=== PATIENT | male | born 1945 | race Caucasian/White ===

== ENCOUNTER 2022-03-16 23:38 | Inpatient (IN) ==
[2022-03-17 01:32] LABS: PCO2 Arterial 38 mmHg (35-45); PO2 Arterial 76 mmHg (80-100)
[2022-03-17 01:41] LABS: ABS Basophils 0.1 10^3/ul (0-0.2); ABS Eosinophils 0.1 10^3/ul (0-0.6); ABS Lymphocytes 0.8 10^3/ul (1.0-4.8); ABS Neutrophils 9.8 10^3/ul (1.5-7.7); Eosinophil % 1.2 %; Hematocrit 32 % (42-52); Hemoglobin 10.6 g/dL (14.0-18.0); Lymphocyte % 6.7 %; Mean Corpuscular HGB Conc 33 g/dL (31-36); Mean Corpuscular Hemoglobin 32 pg (27-31); Mean Corpuscular Volume 98 fL (80-94); Mean Platelet Volume 8.1 fL (7.4-10.4); Platelet Count 189 10^3/uL (150-450); Red Blood Count 3.27 10^6 /uL (4.18-5.48); Red Cell Distribution Width 15 % (10-15); White Blood Count 11.8 10^3/uL (3.5-10.8)
[2022-03-17 02:12] LABS: Albumin 4.4 g/dL (3.2-5.2); Albumin/Globulin Ratio 1.8 (1-3); Calcium 9.3 mg/dL (8.6-10.3); Globulin 2.4 g/dL (2-4); Total Bilirubin 0.8 mg/dL (0.2-1.0); Total Protein 6.8 g/dL (6.4-8.9)
[2022-03-17 02:21] LABS: Potassium 6.1 mmol/L (3.5-5.0)
[2022-03-17 02:48] LABS: High Sensitivity Troponin 1 Hr 40 pg/mL (<20)
[2022-03-17] MEDS ORDERED: Albuterol HFA INHALER 8 gm MDI INH PRN (06:27)
[2022-03-17] MEDS ORDERED: cefTRIAXone 1 gm/50 mL D5W 1 GM/50 ML BAG IV SCH (06:30)
[2022-03-17 07:43] LABS: Magnesium 2.5 mg/dL (1.9-2.7); Phosphorus 6.3 mg/dL (2.5-5.0)
[2022-03-17] MEDS ORDERED: Azithromycin 500 mg/250 ml NS 500 MG/250 ML BAG IVPB SCH (08:00)
[2022-03-17] MEDS: Heparin 1,000 UNIT/ML 10 ml (10,000 UNITS) CATHLAB/DIALYSIS DIALYSIS PRN ×4 (08:50→11:29)
[2022-03-17 12:09] LABS: C Reactive Protein 5.24 mg/L (<8.01)
[2022-03-17] MEDS ORDERED: Perflutren Lipid Microsphere 3 ML VIAL ONE (14:40)
[2022-03-17] MEDS: Heparin 5000 UNITS/ML 1 mL VIAL SUBCUT SCH ×2 (16:03→21:54)
[2022-03-17] MEDS ORDERED: Dextrose 50% Syringe 50 ml 25 GM/50 ML SYRINGE IV PUSH PRN ×2 (18:37→21:54)
[2022-03-17 19:59] LABS: Hepatitis B Surface Antigen Nonreactive (Nonreactive)
[2022-03-17 20:16] LABS: Hepatitis B Surface Ab Not Immune (Immune)
[2022-03-17 22:36] LABS: Calcium 9.1 mg/dL (8.6-10.3); eGFR CKD-EPI 6.7 (>60)
[2022-03-17 22:45] LABS: Potassium 5.7 mmol/L (3.5-5.0)
[2022-03-18 04:38] LABS: ABS Basophils 0.1 10^3/ul (0-0.2); ABS Lymphocytes 0.6 10^3/ul (1.0-4.8); ABS Monocytes 0.7 10^3/ul (0-0.8); ABS Neutrophils 8.1 10^3/ul (1.5-7.7); Eosinophil % 0.1 %; Hematocrit 31 % (42-52); Hemoglobin 10.4 g/dL (14.0-18.0); Lymphocyte % 6.2 %; Mean Corpuscular HGB Conc 34 g/dL (31-36); Mean Corpuscular Hemoglobin 33 pg (27-31); Mean Corpuscular Volume 97 fL (80-94); Mean Platelet Volume 8.5 fL (7.4-10.4); Platelet Count 192 10^3/uL (150-450); Red Blood Count 3.18 10^6 /uL (4.18-5.48); Red Cell Distribution Width 15 % (10-15); White Blood Count 9.5 10^3/uL (3.5-10.8)
[2022-03-18 05:26] LABS: Calcium 9.3 mg/dL (8.6-10.3); Magnesium 2.3 mg/dL (1.9-2.7); Phosphorus 4.6 mg/dL (2.5-5.0); eGFR CKD-EPI 6.3 (>60)
[2022-03-18 05:27] LABS: Potassium 5.4 mmol/L (3.5-5.0)
[2022-03-18] MEDS: Heparin 5000 UNITS/ML 1 mL VIAL SUBCUT SCH ×2 (06:22→15:18)
[2022-03-18] MEDS: Heparin 1,000 UNIT/ML 10 ml (10,000 UNITS) CATHLAB/DIALYSIS DIALYSIS PRN ×4 (06:46→10:01)
[2022-03-18] MEDS: Cholecalciferol (VIT D3) 1,000 unit TAB PO SCH (11:50)
[2022-03-18] MEDS ORDERED: Polyethylene Glycol 3350 17 GM PACKET PO PRN (15:46)
[2022-03-19] MEDS: Heparin 5000 UNITS/ML 1 mL VIAL SUBCUT SCH ×4 (00:39→18:37)
[2022-03-19 05:53] LABS: ABS Basophils 0.1 10^3/ul (0-0.2); ABS Eosinophils 0.1 10^3/ul (0-0.6); ABS Lymphocytes 1.2 10^3/ul (1.0-4.8); ABS Neutrophils 7.2 10^3/ul (1.5-7.7); Eosinophil % 1.3 %; Hematocrit 34 % (42-52); Hemoglobin 11.6 g/dL (14.0-18.0); Lymphocyte % 12.3 %; Mean Corpuscular HGB Conc 34 g/dL (31-36); Mean Corpuscular Hemoglobin 33 pg (27-31); Mean Corpuscular Volume 97 fL (80-94); Mean Platelet Volume 8.8 fL (7.4-10.4); Platelet Count 202 10^3/uL (150-450); Red Blood Count 3.53 10^6 /uL (4.18-5.48); Red Cell Distribution Width 14 % (10-15); White Blood Count 9.6 10^3/uL (3.5-10.8)
[2022-03-19 06:11] LABS: Calcium 9.1 mg/dL (8.6-10.3); Magnesium 2.3 mg/dL (1.9-2.7); Phosphorus 5.4 mg/dL (2.5-5.0); eGFR CKD-EPI 7.9 (>60)
[2022-03-19 06:13] LABS: Potassium 5.6 mmol/L (3.5-5.0)
[2022-03-19] MEDS: Cholecalciferol (VIT D3) 1,000 unit TAB PO SCH (08:30)
[2022-03-19] MEDS: Heparin 1,000 UNIT/ML 10 ml (10,000 UNITS) CATHLAB/DIALYSIS DIALYSIS PRN ×4 (13:15→16:15)
[2022-03-20] MEDS: Heparin 5000 UNITS/ML 1 mL VIAL SUBCUT SCH ×2 (00:15→08:21)
[2022-03-20 04:57] VITALS: BP 127/65
[2022-03-20 05:42] LABS: ABS Basophils 0.1 10^3/ul (0-0.2); ABS Eosinophils 0.1 10^3/ul (0-0.6); ABS Monocytes 0.9 10^3/ul (0-0.8); ABS Neutrophils 6.4 10^3/ul (1.5-7.7); Eosinophil % 0.8 %; Hematocrit 37 % (42-52); Hemoglobin 12.5 g/dL (14.0-18.0); Mean Corpuscular HGB Conc 34 g/dL (31-36); Mean Corpuscular Hemoglobin 33 pg (27-31); Mean Corpuscular Volume 97 fL (80-94); Mean Platelet Volume 8.4 fL (7.4-10.4); Platelet Count 234 10^3/uL (150-450); Red Blood Count 3.86 10^6 /uL (4.18-5.48); Red Cell Distribution Width 15 % (10-15); White Blood Count 8.4 10^3/uL (3.5-10.8)
[2022-03-20 06:26] LABS: Calcium 9.3 mg/dL (8.6-10.3); Magnesium 2.1 mg/dL (1.9-2.7); Phosphorus 5.2 mg/dL (2.5-5.0); eGFR CKD-EPI 9.3 (>60)
[2022-03-20 06:28] LABS: Potassium 5.4 mmol/L (3.5-5.0)
[2022-03-20] MEDS: Cholecalciferol (VIT D3) 1,000 unit TAB PO SCH (08:21)
== END 2022-03-20 13:30 | disposition home or self-care (01) | DRG 291 ==
LOC: ED 23:38 → SUATTDRO 03-17 06:20 → EDHOLD 03-17 06:20 → ICU 03-17 08:20 → MEDTELE 03-18 23:12
PROVIDERS: ADMIT Surgery Surgical Critical Care; ATTEND Internal Medicine

== ENCOUNTER 2023-05-18 14:12 | Inpatient (IN) ==
[2023-05-18 14:44] LABS: ABS Basophils 0.1 10^3/uL (0.0-0.1); ABS Eosinophils 0.1 10^3/uL (0.0-0.5); ABS Lymphocytes 1.3 10^3/uL (1.0-4.8); ABS Monocytes 1.2 10^3/uL (0.0-1.1); ABS Neutrophils 12.7 10^3/uL (1.5-7.6); Eosinophil % 0.7 %; Hematocrit 33.6 % (38-53); Hemoglobin 11.4 g/dL (13.2-16.3); Lymphocyte % 8.2 %; Mean Platelet Volume 8.4 fL (7.5-11.2); Platelet Count 151 10^3/uL (150-450); Red Blood Count 3.46 10^6/uL (4.06-5.63); Red Cell Distribution Width 13.6 % (12-17); White Blood Count 15.4 10^3/uL (3.6-10.2)
[2023-05-18 14:54] LABS: INR 1.25 (0.83-1.13)
[2023-05-18 15:08] LABS: Albumin 4.3 g/dL (3.2-5.2); Calcium 9.4 mg/dL (8.6-10.3); Potassium 4.4 mmol/L (3.5-5.0)
[2023-05-18 15:14] LABS: Albumin/Globulin Ratio 1.7 (1-3); C Reactive Protein 66.51 mg/L (<8.01); Creatinine, Serum 5.74 mg/dL (0.67-1.17); Globulin 2.5 g/dL (2-4); Total Protein 6.8 g/dL (6.4-8.9); eGFR CKD-EPI 9.5 (>60)
[2023-05-18] MEDS ORDERED: Piperacillin/Tazobac 3.375 BAG 3.375 GM/100 ML BAG IV ONE (16:07)
[2023-05-18 16:35] LABS: High Sensitivity Troponin 1 Hr 61 pg/mL (<20)
[2023-05-18] MEDS ORDERED: Vancomycin 1,250 MG in NS 0.9% 250 ml 250 ML IVPB ONE (17:00)
[2023-05-18] MEDS: Hydrocortisone INJ 100 MG/2ML 2 ML VIAL IV SCH (18:55)
[2023-05-18] MEDS ORDERED: Zosyn per Pharmacy NOTE FOLLOW UP SCH (19:00)
[2023-05-18 19:07] LABS: ABS Basophils 0.1 10^3/uL (0.0-0.1); ABS Eosinophils 0.1 10^3/uL (0.0-0.5); ABS Lymphocytes 1.5 10^3/uL (1.0-4.8); ABS Monocytes 1.1 10^3/uL (0.0-1.1); ABS Neutrophils 12.4 10^3/uL (1.5-7.6); Eosinophil % 0.7 %; Hematocrit 33.9 % (38-53); Hemoglobin 11.5 g/dL (13.2-16.3); Lymphocyte % 9.6 %; Mean Corpuscular Hemoglobin 32.9 pg (27-33); Mean Corpuscular Hgb Conc 33.9 g/dL (31-36); Mean Corpuscular Volume 97.1 fL (80-97); Platelet Count 160 10^3/uL (150-450); Red Blood Count 3.49 10^6/uL (4.06-5.63); Red Cell Distribution Width 13.9 % (12-17); White Blood Count 15.1 10^3/uL (3.6-10.2)
[2023-05-18 19:14] LABS: Activated Partial Thrombo Time 33.8 seconds (26.0-38.0); INR 1.22 (0.83-1.13)
[2023-05-18 19:31] LABS: Creatinine, Serum 6.66 mg/dL (0.67-1.17)
[2023-05-18] MEDS ORDERED: Sacubitril/Valsartan 97/103(NF) PO SCH (21:00)
[2023-05-18] MEDS ORDERED: Lactated Ringers 1000 ml BAG 500 ML IV ONE (22:58)
[2023-05-18] MEDS ORDERED: NS 0.9% 1000 ml BAG 1,000 ML IV ONE (22:59)
[2023-05-18] MEDS: Heparin 5000 UNITS/ML 1 mL VIAL SUBCUT SCH (23:04)
[2023-05-18] MEDS: CMCS: Budesonide 3 mg CAP (NF) PO SCH (23:04)
[2023-05-18 23:25] LABS: ABS Basophils 0.1 10^3/uL (0.0-0.1); ABS Lymphocytes 0.4 10^3/uL (1.0-4.8); ABS Monocytes 0.7 10^3/uL (0.0-1.1); ABS Neutrophils 15.3 10^3/uL (1.5-7.6); Eosinophil % 0.1 %; Hematocrit 31.7 % (38-53); Hemoglobin 10.7 g/dL (13.2-16.3); Lymphocyte % 2.7 %; Mean Corpuscular Hemoglobin 33.2 pg (27-33); Mean Corpuscular Hgb Conc 33.8 g/dL (31-36); Mean Corpuscular Volume 98.2 fL (80-97); Mean Platelet Volume 8.3 fL (7.5-11.2); Platelet Count 154 10^3/uL (150-450); Red Blood Count 3.22 10^6/uL (4.06-5.63); Red Cell Distribution Width 13.8 % (12-17); White Blood Count 16.5 10^3/uL (3.6-10.2)
[2023-05-18 23:43] LABS: Albumin 3.8 g/dL (3.2-5.2); Calcium 9.3 mg/dL (8.6-10.3); Potassium 4.9 mmol/L (3.5-5.0); Total Bilirubin 1.1 mg/dL (0.2-1.0)
[2023-05-18 23:49] LABS: Albumin/Globulin Ratio 1.5 (1-3); Creatinine, Serum 6.9 mg/dL (0.67-1.17); Globulin 2.5 g/dL (2-4); Total Protein 6.3 g/dL (6.4-8.9); eGFR CKD-EPI 7.6 (>60)
[2023-05-19] MEDS ORDERED: Piperacillin/Tazobac 3.375 BAG 3.375 GM/100 ML BAG IV ONE ×2 (01:43→06:00)
[2023-05-19] MEDS: Hydrocortisone INJ 100 MG/2ML 2 ML VIAL IV SCH ×2 (04:45→19:20)
[2023-05-19] MEDS ORDERED: Vancomycin per Pharmacy 1 EA NOTE FOLLOW UP SCH (06:00)
[2023-05-19] MEDS ORDERED: Vancomycin Random Level NOTE FOLLOW UP ONE (06:00)
[2023-05-19 06:43] LABS: ABS Lymphocytes 0.7 10^3/uL (1.0-4.8); ABS Monocytes 0.9 10^3/uL (0.0-1.1); ABS Neutrophils 13.4 10^3/uL (1.5-7.6); Hemoglobin 10.2 g/dL (13.2-16.3); Lymphocyte % 4.6 %; Mean Corpuscular Hemoglobin 33.4 pg (27-33); Mean Corpuscular Volume 98.2 fL (80-97); Mean Platelet Volume 8.7 fL (7.5-11.2); Platelet Count 141 10^3/uL (150-450); Red Blood Count 3.05 10^6/uL (4.06-5.63); Red Cell Distribution Width 14.1 % (12-17)
[2023-05-19 06:56] LABS: Calcium 8.8 mg/dL (8.6-10.3); Creatinine, Serum 7.52 mg/dL (0.67-1.17); Potassium 4.7 mmol/L (3.5-5.0); Vancomycin Random 11.2 mcg/mL; eGFR CKD-EPI 6.9 (>60)
[2023-05-19] MEDS: Heparin 5000 UNITS/ML 1 mL VIAL SUBCUT SCH ×4 (07:53→21:11)
[2023-05-19] MEDS: CMCS: Budesonide 3 mg CAP (NF) PO SCH ×2 (09:47→21:09)
[2023-05-19] MEDS: Cholecalciferol (VIT D3) 1,000 unit TAB PO SCH (09:48)
[2023-05-19] MEDS ORDERED: Vancomycin - DIALYSIS DOSING 1 EA NOTE FOLLOW UP SCH (10:00)
[2023-05-19] MEDS: ZOSYN 3.375 GM Q12H per EXTENDED INFUSION IV SCH ×2 (10:12→23:40)
[2023-05-19 14:20] LABS: Hepatitis B Surface Antigen Nonreactive (Nonreactive)
[2023-05-19 14:38] LABS: Hepatitis B Surface Ab Not Immune (Immune)
[2023-05-19] MEDS ORDERED: Albumin Human 25% 25 GM/100 ML BTL IV PRN (15:39)
[2023-05-19] MEDS ORDERED: NS 0.9% 1000 ml BAG 200 ML IV PRN (15:39)
[2023-05-19] MEDS ORDERED: NS 0.9% 1000 ml BAG 100 ML IV PRN (15:39)
[2023-05-19] MEDS ORDERED: Vancomycin 750 MG in NS 0.9% 250 ML IVPB ONE (18:00)
[2023-05-20] MEDS: Heparin 5000 UNITS/ML 1 mL VIAL SUBCUT SCH ×2 (05:46→14:34)
[2023-05-20] MEDS ORDERED: Vancomycin Random Level NOTE FOLLOW UP ONE (06:00)
[2023-05-20 06:38] LABS: Calcium 8.5 mg/dL (8.6-10.3); Creatinine, Serum 8.85 mg/dL (0.67-1.17); Magnesium 1.9 mg/dL (1.9-2.7); eGFR CKD-EPI 5.7 (>60)
[2023-05-20 06:42] LABS: Vancomycin Random 14.5 mcg/mL
[2023-05-20 07:20] LABS: Hepatitis B Surface Antigen Nonreactive (Nonreactive)
[2023-05-20] MEDS: Heparin 1,000 UNIT/ML 10 ml (10,000 UNITS) CATHLAB/DIALYSIS DIALYSIS PRN ×4 (08:56→11:56)
[2023-05-20] MEDS: ZOSYN 3.375 GM Q12H per EXTENDED INFUSION IV SCH (13:47)
[2023-05-20] MEDS: Cholecalciferol (VIT D3) 1,000 unit TAB PO SCH (14:35)
[2023-05-20] MEDS: CMCS: Budesonide 3 mg CAP (NF) PO SCH (14:36)
[2023-05-20 16:08] VITALS: BP 130/69
[2023-05-20] MEDS ORDERED: Vancomycin 750 MG in NS 0.9% 250 ML IVPB ONE (18:00)
[2023-05-22] MEDS ORDERED: Vancomycin Trough Check NOTE FOLLOW UP ONE (09:00)
== END 2023-05-20 17:15 | disposition home or self-care (01) | DRG 91 ==
LOC: ED 14:12 → EDHOLD 14:12 → MEDTELE 17:20
PROVIDERS: ADMIT Internal Medicine; ATTEND Internal Medicine

== ENCOUNTER 2023-08-02 14:51 | Inpatient (IN) ==
[2023-08-02 21:04] LABS: ABS Eosinophils 0.6 10^3/uL (0.0-0.5); ABS Lymphocytes 1.2 10^3/uL (1.0-4.8); ABS Monocytes 0.7 10^3/uL (0.0-1.1); Eosinophil % 8.6 %; Hematocrit 33.3 % (38-53); Hemoglobin 11.4 g/dL (13.2-16.3); Lymphocyte % 18.4 %; Mean Corpuscular Hemoglobin 33.3 pg (27-33); Mean Corpuscular Hgb Conc 34.4 g/dL (31-36); Mean Corpuscular Volume 96.9 fL (80-97); Mean Platelet Volume 8.1 fL (7.5-11.2); Platelet Count 163 10^3/uL (150-450); Red Blood Count 3.44 10^6/uL (4.06-5.63); Red Cell Distribution Width 14.3 % (12-17); White Blood Count 6.5 10^3/uL (3.6-10.2)
[2023-08-02 21:21] LABS: Albumin 3.7 g/dL (3.2-5.2); Albumin/Globulin Ratio 1.6 (1-3); Calcium 8.9 mg/dL (8.6-10.3); Creatinine, Serum 9.33 mg/dL (0.67-1.17); Globulin 2.3 g/dL (2-4); Potassium 5.6 mmol/L (3.5-5.0); Total Bilirubin 0.4 mg/dL (0.2-1.0); eGFR CKD-EPI 5.3 (>60)
[2023-08-02 21:28] LABS: INR 1.12 (0.83-1.13)
[2023-08-02] MEDS ORDERED: SODIUM ZIRCONIUM CYCLOSILICATE 10 GM PACKET PO ONE (22:25)
[2023-08-03] MEDS ORDERED: NS 0.9% 1000 ml BAG 100 ML IV PRN (07:52)
[2023-08-03] MEDS ORDERED: NS 0.9% 1000 ml BAG 200 ML IV PRN (07:52)
[2023-08-03] MEDS: Vitamin THERAPEUTIC TAB PO SCH (08:52)
[2023-08-03] MEDS: Cholecalciferol (VIT D3) 1,000 unit TAB PO SCH (08:52)
[2023-08-03 09:31] LABS: ABS Basophils 0.1 10^3/uL (0.0-0.1); ABS Eosinophils 0.6 10^3/uL (0.0-0.5); ABS Lymphocytes 1.5 10^3/uL (1.0-4.8); ABS Monocytes 0.7 10^3/uL (0.0-1.1); ABS Neutrophils 4.3 10^3/uL (1.5-7.6); Eosinophil % 7.9 %; Hematocrit 37.2 % (38-53); Hemoglobin 12.6 g/dL (13.2-16.3); Lymphocyte % 21.4 %; Mean Corpuscular Hemoglobin 33.2 pg (27-33); Mean Corpuscular Volume 97.5 fL (80-97); Mean Platelet Volume 8.1 fL (7.5-11.2); Platelet Count 178 10^3/uL (150-450); Red Blood Count 3.81 10^6/uL (4.06-5.63); Red Cell Distribution Width 14.2 % (12-17); White Blood Count 7.2 10^3/uL (3.6-10.2)
[2023-08-03 09:48] LABS: Calcium 9.4 mg/dL (8.6-10.3); Creatinine, Serum 9.95 mg/dL (0.67-1.17); Potassium 5.6 mmol/L (3.5-5.0); eGFR CKD-EPI 4.9 (>60)
[2023-08-03 10:43] LABS: Hepatitis B Surface Ab Not Immune (Immune)
[2023-08-03] MEDS: Heparin 1,000 UNIT/ML 10 ml (10,000 UNITS) CATHLAB/DIALYSIS DIALYSIS PRN ×3 (13:00→15:00)
[2023-08-03 13:48] LABS: Hepatitis B Surface Antigen Nonreactive (Nonreactive)
[2023-08-03 18:57] LABS: ABS Eosinophils 0.5 10^3/uL (0.0-0.5); ABS Lymphocytes 1.1 10^3/uL (1.0-4.8); ABS Monocytes 0.7 10^3/uL (0.0-1.1); ABS Neutrophils 4.5 10^3/uL (1.5-7.6); Eosinophil % 6.9 %; Hematocrit 37.3 % (38-53); Hemoglobin 12.8 g/dL (13.2-16.3); Lymphocyte % 16.5 %; Mean Corpuscular Hemoglobin 33.1 pg (27-33); Mean Corpuscular Hgb Conc 34.3 g/dL (31-36); Mean Corpuscular Volume 96.7 fL (80-97); Platelet Count 177 10^3/uL (150-450); Red Blood Count 3.86 10^6/uL (4.06-5.63); Red Cell Distribution Width 14.2 % (12-17); White Blood Count 6.8 10^3/uL (3.6-10.2)
[2023-08-03 19:14] LABS: Creatinine, Serum 5.78 mg/dL (0.67-1.17); eGFR CKD-EPI 9.4 (>60)
[2023-08-03 19:16] LABS: Activated Partial Thrombo Time 34.9 seconds (26.0-38.0); INR 1.11 (0.83-1.13)
[2023-08-03 20:09] LABS: Hepatitis B Surface Antigen Nonreactive (Nonreactive)
[2023-08-03] MEDS: Heparin 5000 UNITS/ML 1 mL VIAL SUBCUT SCH (21:39)
[2023-08-04] MEDS: Heparin 5000 UNITS/ML 1 mL VIAL SUBCUT SCH ×3 (05:17→20:43)
[2023-08-04 06:41] LABS: ABS Eosinophils 0.4 10^3/uL (0.0-0.5); ABS Monocytes 0.8 10^3/uL (0.0-1.1); ABS Neutrophils 4.6 10^3/uL (1.5-7.6); Eosinophil % 5.7 %; Hematocrit 34.7 % (38-53); Lymphocyte % 15.3 %; Mean Corpuscular Hemoglobin 33.3 pg (27-33); Mean Corpuscular Hgb Conc 34.6 g/dL (31-36); Mean Corpuscular Volume 96.1 fL (80-97); Mean Platelet Volume 8.3 fL (7.5-11.2); Platelet Count 165 10^3/uL (150-450); Red Blood Count 3.61 10^6/uL (4.06-5.63); Red Cell Distribution Width 14.2 % (12-17); White Blood Count 6.8 10^3/uL (3.6-10.2)
[2023-08-04 07:21] LABS: Calcium 9.1 mg/dL (8.6-10.3); Creatinine, Serum 7.45 mg/dL (0.67-1.17); Magnesium 1.9 mg/dL (1.9-2.7); Potassium 5.2 mmol/L (3.5-5.0)
[2023-08-04] MEDS: Cholecalciferol (VIT D3) 1,000 unit TAB PO SCH (08:49)
[2023-08-04] MEDS: Vitamin THERAPEUTIC TAB PO SCH (08:49)
[2023-08-05] MEDS: Heparin 5000 UNITS/ML 1 mL VIAL SUBCUT SCH ×3 (05:54→23:01)
[2023-08-05] MEDS: Heparin 1,000 UNIT/ML 10 ml (10,000 UNITS) CATHLAB/DIALYSIS DIALYSIS PRN ×3 (07:15→09:15)
[2023-08-05] MEDS: Cholecalciferol (VIT D3) 1,000 unit TAB PO SCH (09:09)
[2023-08-05] MEDS: Vitamin THERAPEUTIC TAB PO SCH (09:10)
[2023-08-05] MEDS: Albumin Human 25% 25 GM/100 ML BTL IV PRN (09:46)
[2023-08-05 10:17] LABS: Hematocrit 36.5 % (38-53); Hemoglobin 12.6 g/dL (13.2-16.3); Mean Corpuscular Hgb Conc 34.4 g/dL (31-36); Mean Platelet Volume 7.9 fL (7.5-11.2); Platelet Count 186 10^3/uL (150-450); Red Cell Distribution Width 14.3 % (12-17); White Blood Count 6.4 10^3/uL (3.6-10.2)
[2023-08-05 10:33] LABS: Calcium 9.3 mg/dL (8.6-10.3); Creatinine, Serum 4.78 mg/dL (0.67-1.17); Potassium 3.8 mmol/L (3.5-5.0); eGFR CKD-EPI 11.9 (>60)
[2023-08-05 11:08] LABS: ABS Eosinophils 0.6 10^3/uL (0.0-0.5); ABS Lymphocytes 1.3 10^3/uL (1.0-4.8); ABS Monocytes 0.5 10^3/uL (0.0-1.1); Eosinophil % 9.4 %; Lymphocyte % 20.5 %; Nucleated Red Blood Cells % 0.1 %/100WBC (0.0-0.8)
[2023-08-06 05:58] LABS: ABS Basophils 0.1 10^3/uL (0.0-0.1); ABS Eosinophils 0.6 10^3/uL (0.0-0.5); ABS Lymphocytes 1.1 10^3/uL (1.0-4.8); ABS Monocytes 0.7 10^3/uL (0.0-1.1); ABS Neutrophils 5.2 10^3/uL (1.5-7.6); Eosinophil % 7.2 %; Hematocrit 34.7 % (38-53); Hemoglobin 11.9 g/dL (13.2-16.3); Lymphocyte % 14.8 %; Mean Corpuscular Hemoglobin 32.9 pg (27-33); Mean Corpuscular Hgb Conc 34.4 g/dL (31-36); Mean Corpuscular Volume 95.6 fL (80-97); Mean Platelet Volume 7.9 fL (7.5-11.2); Platelet Count 183 10^3/uL (150-450); Red Blood Count 3.63 10^6/uL (4.06-5.63); White Blood Count 7.6 10^3/uL (3.6-10.2)
[2023-08-06 06:17] LABS: Calcium 9.6 mg/dL (8.6-10.3); Creatinine, Serum 7.15 mg/dL (0.67-1.17); Magnesium 1.9 mg/dL (1.9-2.7); Potassium 5.8 mmol/L (3.5-5.0); eGFR CKD-EPI 7.3 (>60)
[2023-08-06] MEDS: Cholecalciferol (VIT D3) 1,000 unit TAB PO SCH (12:18)
[2023-08-06] MEDS: Vitamin THERAPEUTIC TAB PO SCH (12:19)
[2023-08-06] MEDS ORDERED: SODIUM ZIRCONIUM CYCLOSILICATE 10 GM PACKET PO ONE (13:59)
[2023-08-06] MEDS ORDERED: ceFAZolin 2 GM in NS PREMIX 2 GM/100 ML BAG IVPB ONE (15:50)
[2023-08-06] MEDS ORDERED: fentaNYL 100 mcg/2 ml 50 MCG/ML VIAL ONE ×3 (17:03→20:38)
[2023-08-06] MEDS ORDERED: HYDROmorphone 0.5 MG/0.5 ML SYRINGE ONE (17:03)
[2023-08-06] MEDS ORDERED: Glycopyrrolate IV 0.2 MG/ML 1 ML VIAL ONE (17:04)
[2023-08-06] MEDS ORDERED: Dexamethasone IV 4 MG/ML VIAL 1 ml VIAL ONE (17:04)
[2023-08-06] MEDS ORDERED: Lidocaine 2% PF 5 ML VIAL ONE (17:04)
[2023-08-06] MEDS ORDERED: Ondansetron 4 mg VIAL 2 MG/ML 2 ml VIAL ONE (17:04)
[2023-08-06] MEDS ORDERED: Propofol 10 MG/ML 20 ML BTL ONE (17:04)
[2023-08-06] MEDS ORDERED: Bupivacaine 0.5% SDV PF 30ML VIAL ONE (17:09)
[2023-08-06] MEDS ORDERED: Rocuronium 50 mg VIAL 10 mg/ml 5 ml VIAL (50 mg) ONE (17:24)
[2023-08-06] MEDS ORDERED: fentaNYL 100 mcg/2 ml 50 MCG/ML VIAL IV PRN (17:31)
[2023-08-06] MEDS ORDERED: Naloxone 0.4 mg VIAL 0.4 mg/ml 1 ml VIAL IV PRN (17:31)
[2023-08-06] MEDS ORDERED: Ondansetron 4 mg VIAL 2 MG/ML 2 ml VIAL IV PRN (17:31)
[2023-08-06] MEDS ORDERED: Phenylephrine 40 mcg/mL 10mL (400mcg) SYRINGE ONE (18:44)
[2023-08-06] MEDS ORDERED: Phenylephrine IV 10 MG/ML 1 ml VIAL ONE (18:44)
[2023-08-06 23:10] LABS: Hepatitis B Surface Antigen Nonreactive (Nonreactive)
[2023-08-06 23:18] LABS: HIV 4th Generation Nonreactive (Nonreactive)
[2023-08-06 23:27] LABS: Hepatitis B Surface Ab Not Immune (Immune); Hepatitis C Antibody Negative (Negative)
[2023-08-07 05:53] LABS: ABS Lymphocytes 0.5 10^3/uL (1.0-4.8); ABS Monocytes 0.5 10^3/uL (0.0-1.1); ABS Neutrophils 7.2 10^3/uL (1.5-7.6); Hemoglobin 12.5 g/dL (13.2-16.3); Mean Corpuscular Hemoglobin 32.7 pg (27-33); Mean Corpuscular Hgb Conc 33.8 g/dL (31-36); Mean Platelet Volume 8.1 fL (7.5-11.2); Platelet Count 182 10^3/uL (150-450); Red Blood Count 3.82 10^6/uL (4.06-5.63); White Blood Count 8.2 10^3/uL (3.6-10.2)
[2023-08-07 06:17] LABS: Albumin 4.1 g/dL (3.2-5.2); Albumin/Globulin Ratio 1.5 (1-3); Calcium 9.5 mg/dL (8.6-10.3); Creatinine, Serum 8.63 mg/dL (0.67-1.17); Globulin 2.8 g/dL (2-4); Potassium 7.3 mmol/L (3.5-5.0); Total Bilirubin 0.5 mg/dL (0.2-1.0); Total Protein 6.9 g/dL (6.4-8.9); eGFR CKD-EPI 5.8 (>60)
[2023-08-07] MEDS ORDERED: Sodium Polystyrene ORAL.SUSP 15 GM/60 ML BTL PO ONE ×2 (06:20→08:30)
[2023-08-07] MEDS ORDERED: CALCIUM GLUCONATE 1GM/50ML NS 1 GM/50 ML BAG IV ONE ×2 (06:20→07:52)
[2023-08-07] MEDS ORDERED: Dextrose 50% Syringe 50 ml 25 GM/50 ML SYRINGE IV PUSH ONE (08:00)
[2023-08-07] MEDS: Cholecalciferol (VIT D3) 1,000 unit TAB PO SCH (08:58)
[2023-08-07] MEDS: Vitamin THERAPEUTIC TAB PO SCH (09:00)
[2023-08-07] MEDS: Heparin 1,000 UNIT/ML 10 ml (10,000 UNITS) CATHLAB/DIALYSIS DIALYSIS PRN ×4 (10:00→13:05)
[2023-08-07] MEDS: Albumin Human 25% 25 GM/100 ML BTL IV PRN ×2 (11:12→11:49)
[2023-08-07] MEDS ORDERED: ceFAZolin 1 GM ADVAN 1 GM in NS 0.9% 50 ML 50 ML IVPB ONE (13:00)
[2023-08-07 17:31] LABS: Calcium 9.6 mg/dL (8.6-10.3); Creatinine, Serum 5.32 mg/dL (0.67-1.17); Potassium 4.4 mmol/L (3.5-5.0); eGFR CKD-EPI 10.4 (>60)
[2023-08-08 08:45] LABS: ABS Eosinophils 0.2 10^3/uL (0.0-0.5); ABS Lymphocytes 1.1 10^3/uL (1.0-4.8); ABS Neutrophils 6.3 10^3/uL (1.5-7.6); ABS Nucleated RBC 0.01 10^3/ul; Eosinophil % 2.3 %; Hematocrit 29.8 % (38-53); Hemoglobin 10.3 g/dL (13.2-16.3); Lymphocyte % 12.3 %; Mean Corpuscular Hemoglobin 33.1 pg (27-33); Mean Corpuscular Hgb Conc 34.5 g/dL (31-36); Mean Corpuscular Volume 95.8 fL (80-97); Mean Platelet Volume 8.1 fL (7.5-11.2); Nucleated Red Blood Cells % 0.1 %/100WBC (0.0-0.8); Platelet Count 164 10^3/uL (150-450); Red Blood Count 3.11 10^6/uL (4.06-5.63); Red Cell Distribution Width 14.4 % (12-17); White Blood Count 8.7 10^3/uL (3.6-10.2)
[2023-08-08 08:58] LABS: Creatinine, Serum 6.84 mg/dL (0.67-1.17); Magnesium 1.8 mg/dL (1.9-2.7); Potassium 4.3 mmol/L (3.5-5.0); eGFR CKD-EPI 7.7 (>60)
[2023-08-08] MEDS: Vitamin THERAPEUTIC TAB PO SCH (09:28)
[2023-08-08] MEDS: Cholecalciferol (VIT D3) 1,000 unit TAB PO SCH (09:28)
[2023-08-08] MEDS ORDERED: Magnesium Hydroxide LIQ 30 ML UDC PO PRN (10:15)
[2023-08-08] MEDS ORDERED: Senna TAB 8.6 mg TAB PO PRN (10:15)
[2023-08-09 06:54] LABS: ABS Eosinophils 0.3 10^3/uL (0.0-0.5); ABS Lymphocytes 0.8 10^3/uL (1.0-4.8); ABS Monocytes 0.8 10^3/uL (0.0-1.1); Eosinophil % 4.5 %; Hematocrit 27.7 % (38-53); Hemoglobin 9.7 g/dL (13.2-16.3); Lymphocyte % 11.8 %; Mean Corpuscular Hemoglobin 33.6 pg (27-33); Mean Corpuscular Hgb Conc 35.1 g/dL (31-36); Mean Corpuscular Volume 95.6 fL (80-97); Mean Platelet Volume 7.9 fL (7.5-11.2); Nucleated Red Blood Cells % 0.1 %/100WBC (0.0-0.8); Platelet Count 154 10^3/uL (150-450); Red Blood Count 2.89 10^6/uL (4.06-5.63); Red Cell Distribution Width 13.8 % (12-17); White Blood Count 6.9 10^3/uL (3.6-10.2)
[2023-08-09 07:09] LABS: Calcium 8.8 mg/dL (8.6-10.3); Creatinine, Serum 9.1 mg/dL (0.67-1.17); Magnesium 1.8 mg/dL (1.9-2.7); Potassium 4.5 mmol/L (3.5-5.0); eGFR CKD-EPI 5.5 (>60)
[2023-08-09] MEDS: Cholecalciferol (VIT D3) 1,000 unit TAB PO SCH (08:47)
[2023-08-09] MEDS: Vitamin THERAPEUTIC TAB PO SCH (08:51)
[2023-08-09] MEDS: Magnesium Hydroxide LIQ 30 ML UDC PO PRN (10:17)
[2023-08-10] MEDS: Cholecalciferol (VIT D3) 1,000 unit TAB PO SCH (08:36)
[2023-08-10] MEDS: Vitamin THERAPEUTIC TAB PO SCH (08:36)
[2023-08-10 09:03] LABS: Hematocrit 28.1 % (38-53); Hemoglobin 9.8 g/dL (13.2-16.3)
[2023-08-10] MEDS: Polyethylene Glycol 3350 17 GM PACKET PO PRN (10:48)
[2023-08-10] MEDS: Heparin 1,000 UNIT/ML 10 ml (10,000 UNITS) CATHLAB/DIALYSIS DIALYSIS PRN ×3 (14:00→15:54)
[2023-08-10] MEDS: Albumin Human 25% 25 GM/100 ML BTL IV PRN (15:18)
[2023-08-11] MEDS: Magnesium Hydroxide LIQ 30 ML UDC PO PRN (05:06)
[2023-08-11] MEDS: Polyethylene Glycol 3350 17 GM PACKET PO PRN (08:30)
[2023-08-11] MEDS: Vitamin THERAPEUTIC TAB PO SCH (08:34)
[2023-08-11] MEDS: Cholecalciferol (VIT D3) 1,000 unit TAB PO SCH (08:35)
[2023-08-11 11:52] LABS: ABS Basophils 0.1 10^3/uL (0.0-0.1); ABS Eosinophils 0.5 10^3/uL (0.0-0.5); ABS Lymphocytes 0.5 10^3/uL (1.0-4.8); ABS Monocytes 0.8 10^3/uL (0.0-1.1); ABS Neutrophils 8.7 10^3/uL (1.5-7.6); Eosinophil % 4.6 %; Hematocrit 23.5 % (38-53); Lymphocyte % 4.6 %; Mean Corpuscular Hemoglobin 32.8 pg (27-33); Mean Corpuscular Hgb Conc 34.2 g/dL (31-36); Mean Corpuscular Volume 96.1 fL (80-97); Mean Platelet Volume 8.5 fL (7.5-11.2); Platelet Count 193 10^3/uL (150-450); Red Blood Count 2.45 10^6/uL (4.06-5.63); Red Cell Distribution Width 13.6 % (12-17); White Blood Count 10.5 10^3/uL (3.6-10.2)
[2023-08-11 12:15] LABS: Anion Gap 14 mmol/L (2-16); Blood Urea Nitrogen 75 mg/dL (6-24); CO2 Carbon Dioxide 26 mmol/L (22-32); Calcium 8.6 mg/dL (8.6-10.3); Chloride 91 mmol/L (101-111); Creatinine, Serum 9.28 mg/dL (0.67-1.17); Glucose 287 mg/dL (70-100); Potassium 4.4 mmol/L (3.5-5.0); Sodium 131 mmol/L (135-145); eGFR CKD-EPI 5.4 (>60)
[2023-08-11 12:37] LABS: ALT < 3 U/L (7-52); AST 12 U/L (13-39); Albumin 3.5 g/dL (3.2-5.2); Albumin/Globulin Ratio 1.5 (1-3); Alkaline Phosphatase 63 U/L (35-149); Globulin 2.3 g/dL (2-4); Total Bilirubin 0.8 mg/dL (0.2-1.0); Total Protein 5.8 g/dL (6.4-8.9)
[2023-08-12 06:56] LABS: Hematocrit 23.9 % (38-53); Hemoglobin 8.2 g/dL (13.2-16.3)
[2023-08-12] MEDS: Heparin 1,000 UNIT/ML 10 ml (10,000 UNITS) CATHLAB/DIALYSIS DIALYSIS PRN ×3 (06:57→09:05)
[2023-08-12 09:05] LABS: Creatinine, Serum 10.79 mg/dL (0.67-1.17); Potassium 4.6 mmol/L (3.5-5.0); eGFR CKD-EPI 4.5 (>60)
[2023-08-12 12:13] LABS: ABS Basophils 0.1 10^3/uL (0.0-0.1); ABS Eosinophils 0.7 10^3/uL (0.0-0.5); ABS Lymphocytes 0.7 10^3/uL (1.0-4.8); ABS Monocytes 0.8 10^3/uL (0.0-1.1); Eosinophil % 5.2 %; Hemoglobin 9.3 g/dL (13.2-16.3); Lymphocyte % 5.6 %; Mean Corpuscular Hemoglobin 32.9 pg (27-33); Mean Corpuscular Hgb Conc 34.4 g/dL (31-36); Mean Corpuscular Volume 95.7 fL (80-97); Mean Platelet Volume 7.9 fL (7.5-11.2); Platelet Count 260 10^3/uL (150-450); Red Blood Count 2.82 10^6/uL (4.06-5.63); Red Cell Distribution Width 13.9 % (12-17); White Blood Count 13.3 10^3/uL (3.6-10.2)
[2023-08-12] MEDS: Cholecalciferol (VIT D3) 1,000 unit TAB PO SCH (12:36)
[2023-08-12] MEDS: Vitamin THERAPEUTIC TAB PO SCH (12:37)
[2023-08-12 13:14] LABS: C Reactive Protein 324.04 mg/L (<8.01)
[2023-08-12 13:33] LABS: TSH Ultra Thyroid Stim Horm 0.46 mcIU/mL (0.34-5.60)
[2023-08-12 13:43] LABS: Creatinine, Serum 5.86 mg/dL (0.67-1.17); Magnesium 1.8 mg/dL (1.9-2.7); eGFR CKD-EPI 9.3 (>60)
[2023-08-12 13:44] LABS: Folate 19.11 ng/mL (5.90-24.80)
[2023-08-12 14:13] LABS: PCO2 Arterial 32 mmHg (35-45); PO2 Arterial 70 mmHg (80-100)
[2023-08-12] MEDS ORDERED: Vancomycin 1,000 MG in NS 0.9% 250 ml 250 ML IVPB ONE (15:13)
[2023-08-12] MEDS ORDERED: cefTRIAXone 2 gm/50 mL D5W 2 GM/50 ML BAG IV SCH (15:15)
[2023-08-12] MEDS: Morphine 2 MG/ML SYRINGE IV SCH ×2 (15:57→22:49)
[2023-08-12] MEDS: Acetaminophen IV 1 GM/100ML 1,000 MG/100 ML BAG IV SCH ×2 (15:57→22:50)
[2023-08-12] MEDS ORDERED: metroNIDAZOLE IV 500 MG/100ML 500 MG/100 ML BAG IVPB SCH (16:00)
[2023-08-12] MEDS ORDERED: Vancomycin per Pharmacy 1 EA NOTE FOLLOW UP SCH (16:00)
[2023-08-12] MEDS ORDERED: Iodixanol (CONTRAST) 320 MG/ML 100 ML SDV IV ONE (16:14)
[2023-08-12] MEDS: metroNIDAZOLE IV 500 MG/100ML 500 MG/100 ML BAG IVPB SCH (21:18)
[2023-08-13] MEDS: Acetaminophen IV 1 GM/100ML 1,000 MG/100 ML BAG IV SCH ×3 (03:42→18:18)
[2023-08-13] MEDS: Morphine 2 MG/ML SYRINGE IV SCH ×2 (04:00→10:16)
[2023-08-13] MEDS: metroNIDAZOLE IV 500 MG/100ML 500 MG/100 ML BAG IVPB SCH ×2 (04:34→12:21)
[2023-08-13] MEDS ORDERED: NS 0.9% 1000 ml BAG 1,000 ML IV SCH (06:30)
[2023-08-13 07:32] LABS: ABS Eosinophils 0.6 10^3/uL (0.0-0.5); ABS Lymphocytes 0.6 10^3/uL (1.0-4.8); ABS Neutrophils 8.9 10^3/uL (1.5-7.6); Eosinophil % 5.2 %; Hematocrit 23.3 % (38-53); Hemoglobin 7.9 g/dL (13.2-16.3); Lymphocyte % 5.3 %; Mean Corpuscular Hemoglobin 33.1 pg (27-33); Mean Corpuscular Volume 97.2 fL (80-97); Mean Platelet Volume 8.3 fL (7.5-11.2); Platelet Count 240 10^3/uL (150-450); Red Cell Distribution Width 13.6 % (12-17)
[2023-08-13 07:46] LABS: Albumin 3.5 g/dL (3.2-5.2); Albumin/Globulin Ratio 1.3 (1-3); Calcium 9.1 mg/dL (8.6-10.3); Creatinine, Serum 7.63 mg/dL (0.67-1.17); Globulin 2.7 g/dL (2-4); Phosphorus 6.6 mg/dL (2.5-5.0); Potassium 4.4 mmol/L (3.5-5.0); Total Bilirubin 0.7 mg/dL (0.2-1.0); Total Protein 6.2 g/dL (6.4-8.9); eGFR CKD-EPI 6.8 (>60)
[2023-08-13] MEDS: Cholecalciferol (VIT D3) 1,000 unit TAB PO SCH (10:16)
[2023-08-13] MEDS: Vitamin THERAPEUTIC TAB PO SCH (10:22)
[2023-08-13] MEDS ORDERED: NS 0.9% 500 ml BAG 500 ML IV ONE (10:45)
[2023-08-13 18:11] VITALS: BP 93/51
[2023-08-14] MEDS ORDERED: Vancomycin Random Level NOTE FOLLOW UP ONE (06:00)
== END 2023-08-13 15:47 | disposition swing bed (61) | DRG 480 ==
LOC: EDHOLD 14:51 → ED 14:51 → SSU 23:27 → SUATTDRO 08-03 08:10
PROVIDERS: ADMIT Hospitalist; ATTEND Internal Medicine

== ENCOUNTER 2023-08-13 16:01 | Inpatient (IN) ==
[2023-08-13] MEDS ORDERED: Magnesium Hydroxide LIQ 30 ML UDC PO PRN (16:49)
[2023-08-13] MEDS: Senna TAB 8.6 mg TAB PO SCH (23:11)
[2023-08-13] MEDS: Magnesium Hydroxide LIQ 30 ML UDC PO SCH (23:36)
[2023-08-14 06:32] LABS: Platelet Count 284 10^3/uL (150-450)
[2023-08-14 06:46] LABS: Calcium 9.1 mg/dL (8.6-10.3); Creatinine, Serum 8.26 mg/dL (0.67-1.17); Potassium 4.4 mmol/L (3.5-5.0); eGFR CKD-EPI 6.2 (>60)
[2023-08-14 06:49] LABS: Hematocrit 23.6 % (38-53); Hemoglobin 8.1 g/dL (13.2-16.3)
[2023-08-14] MEDS: Cholecalciferol (VIT D3) 1,000 unit TAB PO SCH (09:51)
[2023-08-14] MEDS: Vitamin THERAPEUTIC TAB PO SCH (09:51)
[2023-08-14] MEDS: Magnesium Hydroxide LIQ 30 ML UDC PO SCH ×2 (09:55→21:47)
[2023-08-14] MEDS: Polyethylene Glycol 3350 17 GM PACKET PO SCH (09:55)
[2023-08-14] MEDS: B COMPLEX VITAMIN C FOLIC ACID 0.8 MG PO SCH (09:59)
[2023-08-14] MEDS ORDERED: NS 0.9% 1000 ml BAG 100 ML IV PRN (11:41)
[2023-08-14] MEDS ORDERED: NS 0.9% 1000 ml BAG 200 ML IV PRN (11:41)
[2023-08-14] MEDS: Heparin 1,000 UNIT/ML 10 ml (10,000 UNITS) CATHLAB/DIALYSIS DIALYSIS PRN (12:22)
[2023-08-14] MEDS: Senna TAB 8.6 mg TAB PO SCH (21:47)
[2023-08-15] MEDS: Magnesium Hydroxide LIQ 30 ML UDC PO SCH ×2 (08:41→21:42)
[2023-08-15] MEDS: Polyethylene Glycol 3350 17 GM PACKET PO SCH (08:41)
[2023-08-15] MEDS: Cholecalciferol (VIT D3) 1,000 unit TAB PO SCH (08:42)
[2023-08-15] MEDS: Vitamin THERAPEUTIC TAB PO SCH (08:42)
[2023-08-15] MEDS: B COMPLEX VITAMIN C FOLIC ACID 0.8 MG PO SCH (08:46)
[2023-08-15] MEDS: Senna TAB 8.6 mg TAB PO SCH (21:39)
[2023-08-16] MEDS: Heparin 1,000 UNIT/ML 10 ml (10,000 UNITS) CATHLAB/DIALYSIS DIALYSIS PRN ×3 (07:58→09:58)
[2023-08-16] MEDS: Magnesium Hydroxide LIQ 30 ML UDC PO SCH ×2 (09:22→21:47)
[2023-08-16] MEDS: B COMPLEX VITAMIN C FOLIC ACID 0.8 MG PO SCH (09:22)
[2023-08-16] MEDS: Albumin Human 25% 25 GM/100 ML BTL IV PRN ×2 (09:51→10:48)
[2023-08-16] MEDS: Polyethylene Glycol 3350 17 GM PACKET PO SCH (13:49)
[2023-08-16] MEDS: Cholecalciferol (VIT D3) 1,000 unit TAB PO SCH (13:50)
[2023-08-16] MEDS: Vitamin THERAPEUTIC TAB PO SCH (13:51)
[2023-08-16] MEDS: Senna TAB 8.6 mg TAB PO SCH (21:52)
[2023-08-17] MEDS: Polyethylene Glycol 3350 17 GM PACKET PO SCH (08:22)
[2023-08-17] MEDS: Cholecalciferol (VIT D3) 1,000 unit TAB PO SCH (08:24)
[2023-08-17] MEDS: Vitamin THERAPEUTIC TAB PO SCH (08:24)
[2023-08-17] MEDS: B COMPLEX VITAMIN C FOLIC ACID 0.8 MG PO SCH (08:26)
[2023-08-17] MEDS: Magnesium Hydroxide LIQ 30 ML UDC PO SCH ×2 (08:26→21:21)
[2023-08-17] MEDS: Senna TAB 8.6 mg TAB PO SCH (21:05)
[2023-08-18] MEDS: Polyethylene Glycol 3350 17 GM PACKET PO SCH (08:08)
[2023-08-18] MEDS: Vitamin THERAPEUTIC TAB PO SCH (08:08)
[2023-08-18] MEDS: Cholecalciferol (VIT D3) 1,000 unit TAB PO SCH (08:08)
[2023-08-18] MEDS: Magnesium Hydroxide LIQ 30 ML UDC PO SCH ×2 (08:08→22:38)
[2023-08-18] MEDS: Heparin 1,000 UNIT/ML 10 ml (10,000 UNITS) CATHLAB/DIALYSIS DIALYSIS PRN ×2 (08:25→09:25)
[2023-08-18] MEDS: Albumin Human 25% 25 GM/100 ML BTL IV PRN ×2 (09:47→10:52)
[2023-08-18] MEDS: Senna TAB 8.6 mg TAB PO SCH (22:38)
[2023-08-19] MEDS: Cholecalciferol (VIT D3) 1,000 unit TAB PO SCH (08:41)
[2023-08-19] MEDS: Vitamin THERAPEUTIC TAB PO SCH (08:42)
[2023-08-19] MEDS: Magnesium Hydroxide LIQ 30 ML UDC PO SCH (08:42)
[2023-08-19] MEDS: Polyethylene Glycol 3350 17 GM PACKET PO SCH (08:42)
[2023-08-19] MEDS: [UNRECOGNIZED DRUG - OTHER] PO SCH (08:44)
[2023-08-19] MEDS: PREBIOTIC PO SCH (08:44)
[2023-08-19] MEDS: Senna TAB 8.6 mg TAB PO SCH (21:22)
[2023-08-20] MEDS: Heparin 1,000 UNIT/ML 10 ml (10,000 UNITS) CATHLAB/DIALYSIS DIALYSIS PRN ×3 (08:10→10:14)
[2023-08-20] MEDS: Vitamin THERAPEUTIC TAB PO SCH (13:29)
[2023-08-20] MEDS: Polyethylene Glycol 3350 17 GM PACKET PO SCH (13:33)
[2023-08-20] MEDS: PREBIOTIC PO SCH (13:42)
[2023-08-20] MEDS: [UNRECOGNIZED DRUG - OTHER] PO SCH (13:42)
[2023-08-20] MEDS: Cholecalciferol (VIT D3) 1,000 unit TAB PO SCH (13:45)
[2023-08-20] MEDS: Senna TAB 8.6 mg TAB PO SCH (21:13)
[2023-08-21] MEDS: Vitamin THERAPEUTIC TAB PO SCH (09:13)
[2023-08-21] MEDS: Cholecalciferol (VIT D3) 1,000 unit TAB PO SCH (09:13)
[2023-08-21] MEDS: [UNRECOGNIZED DRUG - OTHER] PO SCH (09:31)
[2023-08-21] MEDS: Polyethylene Glycol 3350 17 GM PACKET PO SCH (09:31)
[2023-08-21] MEDS: PREBIOTIC PO SCH (09:31)
[2023-08-21] MEDS: Senna TAB 8.6 mg TAB PO SCH (21:31)
[2023-08-22] MEDS: Cholecalciferol (VIT D3) 1,000 unit TAB PO SCH (08:49)
[2023-08-22] MEDS: Vitamin THERAPEUTIC TAB PO SCH (08:49)
[2023-08-22] MEDS: Polyethylene Glycol 3350 17 GM PACKET PO SCH (08:50)
[2023-08-22] MEDS: PREBIOTIC PO SCH (08:57)
[2023-08-22] MEDS: [UNRECOGNIZED DRUG - OTHER] PO SCH (08:57)
[2023-08-22] MEDS: Senna TAB 8.6 mg TAB PO SCH (20:54)
[2023-08-23] MEDS: PREBIOTIC PO SCH (08:14)
[2023-08-23] MEDS: Vitamin THERAPEUTIC TAB PO SCH (08:14)
[2023-08-23] MEDS: Polyethylene Glycol 3350 17 GM PACKET PO SCH (08:14)
[2023-08-23] MEDS: [UNRECOGNIZED DRUG - OTHER] PO SCH (08:14)
[2023-08-23] MEDS: Cholecalciferol (VIT D3) 1,000 unit TAB PO SCH (08:15)
[2023-08-23] MEDS: Heparin 1,000 UNIT/ML 10 ml (10,000 UNITS) CATHLAB/DIALYSIS DIALYSIS PRN ×3 (09:53→11:55)
[2023-08-23 14:47] VITALS: BP 127/71
== END 2023-08-23 16:05 | disposition home or self-care (01) | DRG 535 ==
LOC: PREOBSVTOIN 16:35 → SSU 21:30 → SUATTDRO 21:30
PROVIDERS: ADMIT Internal Medicine; ATTEND Hospitalist